=== PATIENT | male | born 2000 | race Caucasian/White ===

== ENCOUNTER 2021-10-23 16:25 | Emergency (ER) | payer SELFPAY ==
[~2021-10-23] VITALS: Ht 165.1 cm; Wt 68.1 kg
[2021-10-23 16:30] VITALS: BP 112/49
--- NOTE | 2021-10-23 17:06 | PHYS DOC ---
Past History Past Surgical History: Other Additional Past Surgical Histo: tubes Additional Smoking Information: vapes Alcohol Use: None General Adult EDM: Chief Complaint: HAND PROBLEM HPI: HPI: Patient is a 21-year-old male who presents to the emergency department today for left hand pain proximal to his MCP joint of the second finger that started this morning when he woke up. Patient rates his pain 8 out of 10. He states it is worse with movement. No treatment prior to arrival. Patient denies any injury, heavy lifting. He states that he does do repetitive movements at work. He denies any decreased sensation or decreased range of motion to hand. Review of Systems: Review of Systems: Musculoskeletal: See HPI Integument: See HPI Neurologic: See HPI Physical Exam: PE: Constitutional: Well developed, well nourished, no acute distress, non-toxic appearance. [] HENT: Normocephalic, atraumatic, bilateral external ears normal, oropharynx moist, no oral exudates, nose normal. [] Eyes: PERRL, EOMI, conjunctiva normal, no discharge. [] Neck: Normal range of motion, no stridor Cardiovascular: Normal peripheral perfusion Lungs & Thorax: Normal work of breathing, no tachypnea Abdomen: Soft and flat Skin: Warm, dry, no erythema, no rash. [] Back: Normal range of motion Extremities: No tenderness, no cyanosis, no clubbing, ROM intact, no edema. Left hand: Pain with palpation to dorsal aspect of left hand proximal to MCP joint of second finger, no obvious deformity or wounds, no crepitus, full range of motion, neuro intact Neurologic: Alert and oriented X 3, normal motor function, normal sensory function, no focal deficits noted. [] Psychologic: Affect normal, judgement normal, mood normal. [] Current Patient Data: Vital Signs: Vital Signs Date Time Temp Pulse Resp B/P (MAP) Pulse Ox O2 Delivery O2 Flow Rate FiO2 10/23/21 16:30 98.1 82 16 112/49 (70) 99 Room Air EKG: EKG: [] Radiology/Procedures: Radiology/Procedures: []PROCEDURE: HAND LEFT 3V Exam: Left hand 3 views INDICATION: Hand pain TECHNIQUE: Frontal, lateral oblique views of the left hand Comparisons: None FINDINGS: Bone mineralization is normal. No acute or healed fractures. Soft tissues are unremarkable. Joint spaces are well-maintained. IMPRESSION: No acute osseous abnormality. Electronically signed by: Libia Bryan MD (10/23/2021 5:20 PM) [facility] DICTATED AND SIGNED BY: LIBIA BRYAN MD DATE: 10/23/211718 CC: GONZALO COLES MD; RASHEED BARBA APRN; PCP,NO ~MTH0 0 Heart Score: C/O Chest Pain: N/A Risk Factors: Risk Factors: DM, Current or recent (<one month) smoker, HTN, HLP, family history of CAD, obesity. Risk Scores: Score 0 - 3: 2.5% MACE over next 6 weeks - Discharge Home Score 4 - 6: 20.3% MACE over next 6 weeks - Admit for Clinical Observation Score 7 - 10: 72.7% MACE over next 6 weeks - Early Invasive Strategies Course & Med Decision Making: Course & Med Decision Making Pertinent Labs and Imaging studies reviewed. (See chart for details) [] Patient presents to the emergency department for pain to the dorsal aspect of his left hand proximal to the MCP joint of his second finger. Patient denies any injury or heavy lifting. He does report repetitive movements at work. An x-ray was performed in the ER that showed no acute findings. Patient educated on rice protocol advised to take Tylenol or ibuprofen for his pain. HERBERT applied. I discussed with patient all findings and diagnostic testing as well as the need to follow-up with PCP for further evaluation and treatment or return to the ER if any new or worsening symptoms. Strict return precautions were also discussed at length. Patient voiced understanding and agreement with the plan. Patient is hemodynamically stable at the time of disposition. Dragon Disclaimer: Dragon Disclaimer: This electronic medical record was generated, in whole or in part, using a voice recognition dictation system. Departure Departure: Impression: Primary Impression: Hand pain Qualified Codes: M79.642 - Pain in left hand Disposition: HOME / SELF CARE / HOMELESS Condition: GOOD Referrals: PCP,NO (PCP) Patient Instructions: LINUS - Routine Care for Injuries Additional Instructions: You were seen in the emergency department today for left hand pain. An x-ray was performed that showed no acute findings. Your symptoms may be improved by something called the rice protocol. This is rest, ice, compression, elevation. Please follow-up when doing intense exercises that may make the pain worse. Sometimes gentle stretching can provide relief, but be careful to injury. It is important to perform gentle range of motion exercises to prevent stiff joints and chronic pain. Use ice packs over the affected areas to help decrease your pain. For the first 24 hours you can apply ice 20 minutes on 20 minutes off for 4 times per day. Sometimes compression such as the use of an Herbert wrap can help with the swelling. You may also elevate the affected area to help with the swelling. You can also take Tylenol and/ibuprofen for your pain at home. Follow-up with your primary care provider on Sunday regarding your ER visit. Return to the emergency department if you develop worsening of your pain, decreased range of motion, increased swelling or decreased sensation to your extremity. RASHEED BARBA APRN Oct 23, 2021 17:06
--- NOTE | 2021-10-23 17:23 | RAD ---
Exam: Left hand 3 views INDICATION: Hand pain TECHNIQUE: Frontal, lateral oblique views of the left hand Comparisons: None FINDINGS: Bone mineralization is normal. No acute or healed fractures. Soft tissues are unremarkable. [facility] are well-maintained. IMPRESSION: No acute osseous abnormality. Electronically signed by: Libia Gardner MD (10/23/2021 5:20 PM) [facility]
== END 2021-10-23 17:37 | disposition home or self-care (01) ==
LOC: ER 16:25
DX: M79.642 Pain in left hand (principal); F17.200 Nicotine dependence, unspecified, uncomplicated
CPT/HCPCS: 73130; 99283